=== PATIENT | male | born 1980 | race Caucasian/White ===

== ENCOUNTER 2019-08-29 19:11 | Emergency (ER) | payer SELFPAY ==
[~2019-08-29] VITALS: Ht 177.8 cm; Wt 72.6 kg
--- NOTE | 2019-08-29 19:15 | NUR ---
PT BIBSELF C/O "I FEEL LIKE MY HEART IS RACING X4 DAYS & LIKE A SHARP NEEDLE IN MY HEART" L SIDED CP & PALPITATION WITH SOB X4DAYS. NAD NOTED. RESP EVEN AND UNLABORED. PT AMBULATORY WITH STEADY GAIT. AOX4. PT ON MONITOR IN BED 4. WILL CONTINUE TO MONITOR.
--- NOTE | 2019-08-29 20:00 | NUR ---
ER PA AT BEDSIDE FOR EVAL
--- NOTE | 2019-08-29 20:20 | NUR ---
TECH AT BEDSIDE FOR REPEAT EKG
--- NOTE | 2019-08-29 20:25 | NUR ---
PHLEB AT BEDSIDE FOR LAB DRAW
[2019-08-29 20:34] LABS: BASOPHILS % (AUTO) 0.5 % (0.0-2.0); EOSINOPHILS % (AUTO) 1.7 % (0.0-6.0); HEMATOCRIT 44 % (39-51); HEMOGLOBIN 14.9 g/dL (13.5-17.5); LYMPHOCYTES # (AUTO) 2.1 /CMM (0.8-4.8); LYMPHOCYTES % (AUTO) 31.5 % (20.0-44.0); MEAN CORPUSCULAR HGB CONC 34 g/dl (31.0-36.0); MEAN CORPUSCULAR VOLUME 91 fL (80-96); MONOCYTES # (AUTO) 0.5 /CMM (0.1-1.30); MONOCYTES % (AUTO) 7.2 % (2.0-12.0); NEUTROPHILS # (AUTO) 3.9 /CMM (1.8-8.9); NEUTROPHILS % (AUTO) 59.1 % (43.0-81.0); PLATELET COUNT (AUTO) 184 /CMM (150-450); RED BLOOD CELL COUNT(AUTO) 4.86 MIL/uL (4.5-6.0); WHITE BLOOD COUNT (AUTO) 6.6 K/uL (4.3-11.0)
--- NOTE | 2019-08-29 20:42 | NUR ---
RADIOLOGY AT BEDSIDE FOR XRAY
[2019-08-29 20:54] LABS: ALANINE AMINOTRANSFERASE 23 U/L (12-78); ALBUMIN 4.3 g/dL (3.4-5.0); ALKALINE PHOSPHATASE 57 U/L (46-116); ASPARTATE AMINOTRANSFERASE 18 U/L (15-37); BILIRUBIN,DIRECT 0.1 mg/dL (0.0-0.2); BILIRUBIN,TOTAL 0.7 mg/dL (0.2-1.0); CALCIUM, SERUM 9.1 mg/dL (8.5-10.1); CARBON DIOXIDE 30 mmol/L (21-32); CHLORIDE 105 mmol/L (98-107); CREATININE 1.1 mg/dL (0.6-1.3); GLUCOSE 95 mg/dL (74-106); POTASSIUM 4.4 mmol/L (3.5-5.1); SODIUM SERUM 142 mmol/L (136-145); TOTAL PROTEIN, SERUM 7.2 g/dL (6.4-8.2); UREA NITROGEN, BLOOD 17 mg/dL (7-18)
--- NOTE | 2019-08-29 21:00 | NUR ---
URINE COLLECTED AND SENT TO LAB
[2019-08-29 21:04] VITALS: BP 126/75
--- NOTE | 2019-08-29 21:38 | NUR ---
Patient discharged to home in stable condition. Written and verbal after care instructions given. Patient verbalizes understanding of instruction.
== END 2019-08-29 21:48 | disposition home or self-care (01) ==
LOC: ER 19:15
DX: R00.2 Palpitations (principal); R00.0 Tachycardia, unspecified; R42 Dizziness and giddiness
CPT/HCPCS: 36415; 71045-TC; 80048-TC; 80076-TC; 80305; 84443-TC; 84484-TC; 85025-TC; 85378-TC